=== PATIENT | male | born 1995 | race Caucasian/White ===

== ENCOUNTER 2024-09-14 18:55 | Emergency (ER) | payer BC ==
[~2024-09-14] VITALS: Ht 172.7 cm; Wt 90.0 kg
[2024-09-14 20:01] VITALS: BP 140/82
== END 2024-09-14 20:03 | disposition home or self-care (01) ==
LOC: ED 18:55
DX: S93.402A Sprain of unspecified ligament of left ankle, initial encounter (principal); Z88.0 Allergy status to penicillin; W17.89XA Other fall from one level to another, initial encounter; X50.1XXA Overexertion from prolonged static or awkward postures, initial encounter
CPT/HCPCS: 73610; 99283